=== PATIENT | female | born 1995 | race African-American/Black ===

== ENCOUNTER 2022-06-12 10:31 | Emergency (ER) | payer SELFPAY ==
[~2022-06-12] VITALS: Ht 167.6 cm; Wt 140.9 kg
[2022-06-12 11:38] VITALS: BP 97/71
[2022-06-12] MEDS ORDERED: KETOROLAC TROMETH 60MG/2ML VIAL IM ONE (12:15)
[2022-06-12] MEDS ORDERED: IBUP800T27 PO (12:42)
[2022-06-12] MEDS ORDERED: SILV1CRE82 TOP (12:42)
== END 2022-06-12 12:54 | disposition home or self-care (01) ==
LOC: ER 10:31
DX: S63.611A Unspecified sprain of left index finger, initial encounter (principal); S63.613A Unspecified sprain of left middle finger, initial encounter; T23.102A Burn of first degree of left hand, unspecified site, initial encounter; X19.XXXA Contact with other heat and hot substances, initial encounter; Y93.89 Activity, other specified; Y92.89 Other specified places as the place of occurrence of the external cause; Y99.8 Other external cause status
CPT/HCPCS: 73130; 96372; 99283; J1885